=== PATIENT | female | born 1970 | race Caucasian/White ===

== ENCOUNTER → 2016-06-19 | Outpatient (CLI) | payer BC ==
[~2016-06-19] MED LIST: ALL180 PO; CALC-51 PO; CITA20TA4 PO; ELM100 PO; ESTR2TAB PO; MDR PO; METO25TA3 PO; MULT-506 PO; PENT100C6 PO; RANI300T2 PO
== END | disposition home or self-care (01) ==
LOC: C.PATHSPEC 13:33
PROVIDERS: ATTEND Plastic Surgery
DX: L98.9 Disorder of the skin and subcutaneous tissue, unspecified (principal)

== ENCOUNTER 2016-07-04 12:44 | Emergency (ER) | payer BC, OTHER ==
[~2016-07-04 12:44] MED LIST changes: -CALC-51 PO; -CITA20TA4 PO; -ESTR2TAB PO; -PENT100C6 PO; -RANI300T2 PO
[2016-07-04 12:48] VITALS: TEMP 36.9; Ht 175.3 cm
[2016-07-04] MEDS ORDERED: CITA20TA4 PO (13:07)
[2016-07-04] MEDS ORDERED: RANI300T2 PO (13:07)
[2016-07-04] MEDS ORDERED: ESTR2TAB PO (13:07)
[2016-07-04] MEDS ORDERED: PENT100C6 PO (13:07)
[2016-07-04] MEDS ORDERED: CALC-51 PO (13:07)
--- NOTE | 2016-07-04 13:30 | DIAGNOSTIC IMAGING REPORT ---
RIGHT KNEE 3 VIEWS HISTORY: Right knee pain. r KNEE INJURY Right COMPARISON: None. FINDINGS: There is no fracture or dislocation. Soft tissues are unremarkable. No radiopaque foreign bodies. No knee effusion. IMPRESSION: No fractures. Electronically signed by: Júnior Erazo M.D. 07/04/2016 1:28 PM Dictated Date/Time: 07/04/2016 1:27 PM
[2016-07-04 15:06] VITALS: BP 124/70; PULSE 64; O2SAT 97
--- NOTE | 2016-07-04 15:47 | EMERGENCY ROOM VISIT NOTE ---
History First contact with patient: 12:55 Chief Complaint: KNEEPAIN Stated Complaint: RIGHT KNEE INJURY, UNABLE TO WALK, HIT BACK OF HEA History of Present Illness The patient is a 45 year old female who presents to the Emergency Room with complaints of a head injury and right knee injury while working today. The patient reports that she was doing step-ups on her right knee collapsed and she fell backward onto a weight rack, hitting the back of her head. There was no loss of consciousness, but the patient does report a headache. The patient also reports that she is developing a migraine that she has had are as as well. She does have a history of frequent migraines. She denies any neck pain or back pain. She rates her discomfort a 5 out of 10. Review of Systems 10 system review was performed and was negative except for pertinent positives and negatives as indicated in history of present illness Past Medical/Surgical History Medical Problems: (1) Endometriosis Nos Surgical Problems: (1) No history of previous surgery Family History FH: cancer FH: heart disease FH: hypertension FH: kidney disease Social History Smoking Status: Never Smoker Alcohol Use: none Marital Status: Housing Status: lives with family Occupation Status: employed Current/Historical Medications Scheduled Calcium Carbonate-Vitamin D (Calcium), 1 TAB PO DAILY Citalopram Hydrobromide (Citalopram Hydrobromide), 20 MG PO DAILY Estradiol (Estradiol), Unknown Dose PO DAILY Metoprolol Succ (Toprol Xl) (Toprol-Xl), 12.5 MG PO DAILY Multivitamin (Multivitamin), 1 TAB PO DAILY Pentosan Polysulfate Sodium (Elmiron), 200 MG PO DAILY Ranitidine (Zantac), 150 MG PO DAILY Allergies Coded Allergies: Penicillins (Verified Allergy, Intermediate, HIVES, 04/16/09) Iodine (Verified Allergy, Mild, HIVES, 04/16/09) SHELLFISH (Verified Allergy, Mild, HIVES, 11/14/05) Physical Exam Vital Signs Date Time Temp Pulse Resp B/P Pulse Ox O2 Delivery O2 Flow Rate FiO2 07/04/16 15:06 64 16 124/70 97 07/04/16 12:48 36.9 80 20 115/77 95 Room Air Physical Exam CONSTITUTIONAL: Healthy and well nourished. Alert and oriented X 3 with positive affect. Patient does not appear in any acute distress. HEENT: Examination shows mild occipital edema without laceration. Pupils equal , round and reactive. No hemotympanum, epistaxis, subconjunctival hemorrhage, raccoon's eyes or Valles sign. NECK: Full active range of motion without discomfort. RESPIRATORY: Clear to auscultation bilaterally with no wheezing, crackles, rhonchi or stridor. CARDIOVASCULAR: Regular rate and rhythm with no murmurs, rubs or gallops. GASTROINTESTINAL: Bowel sounds present in all quadrants. Soft and nontender to palpation. MUSCULOSKELETAL: Examination of the right knee does not show any obvious soft tissue edema, ecchymosis or joint effusion. Flexion and extension does not cause any significant discomfort. Ligamentous exam is normal. No focal tenderness over the joint line or hamstrings. Pedal pulses are intact. INTEGUMENTARY: No rash or other significant dermatologic conditions noted. NEUROLOGIC: Cranial nerves II-XII grossly intact. No focal neurologic deficits noted. Normal finger to nose test. Negative pronator drift. No ataxia with ambulation. Right upper extremity is sensory intact. Medical Decision & Procedures ER Provider Diagnostic Interpretation: My interpretation of right knee x-rays does not show any obvious effusion, fractures or dislocations. Radiologist report is as follows: RIGHT KNEE 3 VIEWS HISTORY: Right knee pain. r KNEE INJURY Right COMPARISON: None. FINDINGS: There is no fracture or dislocation. Soft tissues are unremarkable. No radiopaque foreign bodies. No knee effusion. IMPRESSION: No fractures. ED Course Patient history and physical exam were performed. Nurse's notes were reviewed. Vital signs were reviewed and were normal. The patient refused any analgesics on initial exam. X-rays of the right knee were normal. I did discuss performing a head CT, but the patient refused. The patient was encouraged to intermittently apply ice to areas of discomfort. Concussion handout was provided. The patient was instructed to limit her activities until her headache completely resolves. She was instructed to return to the emergency department for any progressively worsening concussion symptoms. She was encouraged to intermittently apply ice to the knee. A knee immobilizer and crutches were dispensed. She was encouraged to follow-up with her Worker's Compensation approved orthopedic surgeon for further knee examination. The patient reports that her knee pain was improving in the emergency department, and was having no worsening headache. She rated her overall discomfort a 4 out of 10 at the time of discharge. Medical Decision Impression Primary Impression: Concussion Additional Impressions: Contusion of right knee Work related injury Departure Information Referrals Yaw Grande M.D. (PCP) Patient Instructions My [facility] Problem Qualifiers Primary Impression: Concussion Encounter type: initial encounter Loss of consciousness presence/duration: without LOC Qualified Codes: S06.0X0A - Concussion without loss of consciousness, initial encounter Additional Impressions: Contusion of right knee Encounter type: initial encounter Qualified Codes: S80.01XA - Contusion of right knee, initial encounter
== END 2016-07-04 15:07 | disposition home or self-care (01) ==
LOC: C.EDB 12:46 → C.EDD 15:07
DX: S06.0X0A Concussion without loss of consciousness, initial encounter (principal); S80.01XA Contusion of right knee, initial encounter; Y99.0 Civilian activity done for income or pay; W19.XXXA Unspecified fall, initial encounter; N80.9 Endometriosis, unspecified; Z82.49 Family history of ischemic heart disease and other diseases of the circulatory system